=== PATIENT | female | born 2000 | race American Indian/Alaskan Native ===

== ENCOUNTER 2019-05-01 16:38 | Emergency (ER) | payer SELFPAY ==
[2019-05-01 16:45] VITALS: BP 131/71
--- NOTE | 2019-05-01 17:58 | Emergency Department Report ---
Blank Doc - Documentation Documentation: 19-year-old female that presents with chest pain. Denies any cough. This initial assessment/diagnostic orders/clinical plan/treatment(s) is/are subject to change based on patient's health status, clinical progression and re- assessment by fellow clinical providers in the ED. Further treatment and workup at subsequent clinical providers discretion. Patient/guardians urged not to elope from the ED as their condition may be serious if not clinically assessed and managed. Initial orders include: 1- Patient sent to [facility] for further evaluation and treatment 2- EKG 3- CXR
--- NOTE | 2019-05-01 18:30 | XRay Report ---
CHEST 2 VIEWS INDICATION / CLINICAL INFORMATION: cp. COMPARISON: None available. FINDINGS: SUPPORT DEVICES: None. HEART / MEDIASTINUM: No significant abnormality. LUNGS / PLEURA: No significant pulmonary or pleural abnormality. No pneumothorax. ADDITIONAL FINDINGS: No significant additional findings. IMPRESSION: 1. No acute findings. Signer Name: Adan Mcduffie MD Signed: 05/01/2019 6:26 PM Workstation Name: [id number]
--- NOTE | 2019-05-01 20:11 | Emergency Department Report ---
ED General Adult HPI - General Chief complaint: Upper Respiratory Infection Stated complaint: SHARP CHEST PAIN Time Seen by Provider: 05/01/19 17:57 Source: patient Mode of arrival: Ambulatory Limitations: No Limitations - History of Present Illness Initial comments: Patient is a 19-year-old female who presents the emergency room with complaints of substernal chest pain that began 2 days ago. She states that she feels it move around the chest and in the abdomen. She states that it is an occasional sharp pain. She denies any pain currently. She states that she has also had an intermittent right restorationist headache for the last few days. She states she took Aleve 2 days ago which improved her headache. She states that when she becomes angry or frustrated she feels the chest pain and feels that her throat is closing. She denies symptoms at all currently. She denies any headache or chest pain currently. She denies any nausea, vomiting, diarrhea, fever, cough, shortness of breath, leg swelling. She denies any recent surgery, recent travel, hormone use. She has a past medical history of asthma but states it has not bothered her in several years. She denies any allergies to medications. She states her last menstrual cycle was April 05, 2019. - Related Data Previous Rx's Medication Instructions Recorded Last Taken Type Butalb/Acetaminophen/Caffeine 1 cap PO Q8HR PRN #10 cap 05/01/19 Unknown Rx [Fioricet 50-300-40 mg CAP] Simethicone [Gas-X] 62.5 mg PO DAILY #1 strip 05/01/19 Unknown Rx Allergies Allergy/AdvReac Type Severity Reaction Status Date / Time No Known Allergies Allergy Unverified 05/01/19 16:41 ED Review of Systems ROS: Stated complaint: SHARP CHEST PAIN Other details as noted in HPI Comment: All other systems reviewed and negative ED Past Medical Hx - Past Medical History Previous Medical History?: Yes Hx Asthma: Yes - Surgical History Past Surgical History?: No - Social History Smoking Status: Never Smoker Substance Use Type: None - Medications Home Medications: Home Medications Medication Instructions Recorded Confirmed Last Taken Type Butalb/Acetaminophen/Caffeine 1 cap PO Q8HR PRN #10 cap 05/01/19 Unknown Rx [Fioricet 50-300-40 mg CAP] Simethicone [Gas-X] 62.5 mg PO DAILY #1 strip 05/01/19 Unknown Rx ED Physical Exam - General Limitations: No Limitations General appearance: alert, in no apparent distress - Head Head exam: Present: atraumatic, normocephalic - Eye Eye exam: Present: normal appearance - ENT ENT exam: Present: mucous membranes moist - Respiratory Respiratory exam: Present: normal lung sounds bilaterally. Absent: respiratory distress, wheezes, rales, rhonchi, stridor, chest wall tenderness, accessory muscle use, decreased breath sounds, prolonged expiratory - Cardiovascular Cardiovascular Exam: Present: regular rate, normal rhythm, normal heart sounds. Absent: systolic murmur, diastolic murmur, rubs, gallop - Neurological Exam Neurological exam: Present: alert, oriented X3 - Psychiatric Psychiatric exam: Present: normal affect, normal mood - Skin Skin exam: Present: warm, dry, intact ED Course Vital Signs 05/01/19 16:42 Temperature 98.2 F Pulse Rate 63 Respiratory 16 Rate Blood Pressure 131/71 O2 Sat by Pulse 98 Oximetry ED Medical Decision Making - EKG Data EKG shows normal: sinus rhythm, axis, intervals, QRS complexes, ST-T waves Rate: normal - Radiology Data Radiology results: report reviewed CHEST 2 VIEWS INDICATION / CLINICAL INFORMATION: cp. COMPARISON: None available. FINDINGS: SUPPORT DEVICES: None. HEART / MEDIASTINUM: No significant abnormality. LUNGS / PLEURA: No significant pulmonary or pleural abnormality. No pneumothorax. ADDITIONAL FINDINGS: No significant additional findings. IMPRESSION: 1. No acute findings. Signer Name: Adan Mcduffie MD Signed: 05/01/2019 6:26 PM Workstation Name: [id number] Transcribed By: TL Dictated By: Adan Mcduffie MD Electronically Authenticated By: Adan Mcduffie MD Signed Date/Time: 05/01/191825 DD/ 25 TD/TT: - Medical Decision Making Patient is a 19-year-old female who presents the emergency room with complaints of substernal chest pain that began 2 days ago. She states that she feels it move around the chest and in the abdomen. She states that it is an occasional sharp pain. She denies any pain currently. She states that she has also had an intermittent right restorationist headache for the last few days. She states she took Aleve 2 days ago which improved her headache. She states that when she becomes angry or frustrated she feels the chest pain and feels that her throat is closing. She denies symptoms at all currently. She denies any headache or chest pain currently. She denies any nausea, vomiting, diarrhea, fever, cough, shortness of breath, leg swelling. She denies any recent surgery, recent travel, hormone use. She has a past medical history of asthma but states it has not bothered her in several years. She denies any allergies to medications. She states her last menstrual cycle was April 05, 2019. vitals are normal. CXR with no acute process. EKG WNL. PERC criteria negative for PE. EKG WNL, no significant cardiac hx, young age, low risk for cardiac event. This symptoms seem most consistent with gas pain versus anxiety. Unlikely to be from cardiac etiology. Patient given prescription for simethicone for gas pain. Patient given prescription for Fioricet to take as needed for headaches. Advised patient to please take medication as prescribed. Increase your water intake. Follow-up with a primary care doctor in the next 2 to 3 days. Return to the emergency room for any new or worsening symptoms. - Differential Diagnosis GERD, gas pain, anxiety, costochrondritis, HCM, PTX, PE Critical care attestation.: If time is entered above; I have spent that time in minutes in the direct care of this critically ill patient, excluding procedure time. ED Disposition Clinical Impression: Atypical chest pain Headache Qualifiers: Headache type: unspecified Headache chronicity pattern: acute headache Intractability: not intractable Qualified Code(s): R51 - Headache Disposition: DC-01 TO HOME OR SELFCARE Is pt being admited?: No Does the pt Need Aspirin: No Condition: Stable Instructions: Chest Pain (ED), Gas and Bloating (ED), Migraine Headache (ED) Additional Instructions: please take medication as prescribed. Increase your water intake. Follow-up with a primary care doctor in the next 2 to 3 days. Return to the emergency room for any new or worsening symptoms. Prescriptions: Butalb/Acetaminophen/Caffeine [Fioricet 50-300-40 mg CAP] 1 cap PO Q8HR PRN #10 cap PRN Reason: headache Simethicone [Gas-X] 62.5 mg PO DAILY #1 strip Referrals: KWAME RODARTE MD [Staff Physician] - 2-3 Days [facility] [Outside] - 2-3 Days [facility] [Outside] - 2-3 Days Time of Disposition: 20:12 Print Language: WALLISIAN
== END 2019-05-01 20:23 | disposition home or self-care (01) ==
LOC: ED 16:38
DX: R07.89 Other chest pain (principal); R51 Headache; J45.909 Unspecified asthma, uncomplicated; Z79.899 Other long term (current) drug therapy
CPT/HCPCS: 71046; 93005; 93010